=== PATIENT | female | born 1945 | race African-American/Black ===

== ENCOUNTER → 2016-04-02 | Outpatient (CLI) | payer MEDICARE, MEDICAID ==
[2016-04-02 14:17] LABS: BASOPHILS % (AUTO) 1.1 % (0.0-2.0); EOSINOPHILS % (AUTO) 2.8 % (0.0-3.0); LYMPHOCYTES % (AUTO) 31.1 % (20.0-45.0); MEAN CORPUSCULAR HEMOGLOBIN 28.6 PG (27.0-31.0); MEAN CORPUSCULAR HGB CONC 31.8 G/DL (32.0-36.0); MEAN CORPUSCULAR VOLUME 90 FL (80-99); MEAN PLATELET VOLUME 6.8 FL (6.5-10.1); MONOCYTES % (AUTO) 5.4 % (1.0-10.0); NEUTROPHILS % (AUTO) 59.7 % (45.0-75.0); PLATELET COUNT 307 K/UL (150-450); RED BLOOD COUNT 5.14 M/UL (4.20-5.40); RED CELL DISTRIBUTION WIDTH 14.8 % (11.6-14.8); WHITE BLOOD COUNT 10.2 K/UL (4.8-10.8)
[2016-04-02 14:31] LABS: ALANINE AMINOTRANSFERASE 24 U/L (3-33); ALBUMIN/GLOBULIN RATIO 1.3 (1.0-2.7); ANION GAP 13 (5-15); ASPARTATE AMINO TRANSFERASE 24 U/L (5-40); CALCIUM 9.7 mg/dL (8.6-10.2); CARBON DIOXIDE 29 mEQ/L (20-30); CHLORIDE 100 mEQ/L (98-107); CHOLESTEROL 262 mg/dL (< 200); CHOLESTEROL/HDL RATIO 3.3 (3.3-4.4); CREATININE 0.7 mg/dL (0.5-0.9); CRP QUANT < 0.3 mg/dL (< 0.5); HEMOLYSIS 1; LDL CHOLESTEROL (CALC.) 166 mg/dL (60-99); POTASSIUM 3.5 mEQ/L (3.4-4.9); SODIUM 142 mEQ/L (135-145); TOTAL PROTEIN 7.6 g/dL (6.6-8.7)
[2016-04-02 15:22] LABS: ERYTHROCYTE SEDIMENTATION RATE 24 MM/HR (0-30)
[2016-04-03 17:10] LABS: ANTI-NUCLEAR ANTIBODY SCREEN Negative (Negative)
[2016-04-05 10:12] LABS: VITAMIN D 25-OH TOTAL 34 ng/mL (.)
== END | disposition home or self-care (01) ==
LOC: LAB 13:28
DX: G43.909 Migraine, unspecified, not intractable, without status migrainosus (principal)
CPT/HCPCS: 36415; 80053; 80061; 82306; 82607; 84443; 85025; 85651; 86039; 86140

== ENCOUNTER → 2016-04-07 | Outpatient (CLI) | payer MEDICARE, MEDICAID ==
--- NOTE | 2016-04-07 16:23 | Diagnostic Imaging Report ---
Indication: 70-year-old female outpatient with severe headaches, history of prior CVA Technique: sagittal T1 fast spin echo, axial T1 FLAIR PROPELLER, axial T2 FLAIR PROPELLER, axial T2 FS PROPELLER, axial T2* GRE, axial diffusion weighted images. ADC and exponential ADC maps generated Comparison: None Findings: . No abnormal areas of restricted diffusion to suggest acute infarction. No acute hemorrhage or edema. No mass effect nor midline shift. There is mild age-related enlargement of ventricles and extra axial CSF spaces. There is periventricular deep white matter chronic ischemic change. Old lacunar infarcts versus prominent perivascular spaces are seen in the basal ganglia bilaterally. There is left maxillary sinus mucosal disease.. The vascular flow voids are preserved. Impression: Chronic and age-related changes. Negative for acute intracranial bleed, mass effect, or infarct
== END | disposition home or self-care (01) ==
LOC: MRI 11:01
DX: R51 Headache (principal)
CPT/HCPCS: 70551

== ENCOUNTER 2018-10-17 12:26 | Outpatient (CLI) | payer MEDICARE, MEDICAID ==
[2018-10-17 12:58] LABS: BLOOD UREA NITROGEN 16 mg/dL (7-18); CREATININE 0.7 MG/DL (0.55-1.30)
== END 2018-10-17 14:26 | disposition home or self-care (01) ==
LOC: LAB 12:26
DX: M48.00 Spinal stenosis, site unspecified (principal)
CPT/HCPCS: 36415; 82565; 84520